=== PATIENT | male | born 1955 | race Two or more races ===

== ENCOUNTER 2020-04-09 11:04 | Outpatient (REF) | payer OTHER, SELFPAY ==
[2020-04-09 13:38] LABS: Alanine Aminotransferase 20 U/L (0-40); Albumin Level 4.2 g/dL (3.5-5.0); Alkaline Phosphatase 116 U/L (39-117); Aspartate Amino Transferase 17 U/L (5-37); Bilirubin Direct 0.2 mg/dL (0.0-0.5); Bilirubin Total 0.5 mg/dL (0.0-1.0); Cholesterol 144 mg/dL; HDL Cholesterol 34 mg/dL; LDL Cholesterol Calculated 80 mg/dl; Total Protein 7.2 g/dL (6.5-8.0); Triglycerides 151 mg/dL
== END 2020-04-09 11:05 | disposition home or self-care (01) ==
LOC: HO.LAB 11:04
PROVIDERS: PCP Family Medicine; Visit Provider Internal Medicine
DX: I25.10 Atherosclerotic heart disease of native coronary artery without angina pectoris (principal); F17.200 Nicotine dependence, unspecified, uncomplicated; I25.2 Old myocardial infarction; Z79.82 Long term (current) use of aspirin; Z79.899 Other long term (current) drug therapy; Z95.5 Presence of coronary angioplasty implant and graft
CPT/HCPCS: 36415; 80061; 80076; 93005; 99212

== ENCOUNTER → 2022-07-15 14:58 | Outpatient (REF) | payer MEDICARE, MEDICAID, SELFPAY ==
--- NOTE | 2022-07-15 15:06 | CA_ITS ---
Transthoracic Echocardiogram Patient (Last, First, Middle): Kalyan Glynn, Gender: Male Date of : 1955 Age: 67 Procedure Date: 07/15/2022 Procedure Type: Transthoracic Echocardiogram Location: OP Height: 170.18 cm Weight: 87.09 kg BSA: 1.99 m2 Heart Rate: 85 bpm Windows Server Support Technician: RAMESH Clemente MD: Lionel Maguire MD Enterprise Resource Analyst: Mil Barroso MD Symptoms: I25.10 - Atherosclerotic heart disease of [place] coronary artery without... Study Quality: Fair ECG Rhythm: Sinus Conclusions: - 1. Normal LV systolic function with LVEF of 60 65% 2. Normal cardiac valvular Doppler 3. Normal RV systolic pressure 4. No gross pericardial effusion Findings Left Ventricle Normal left ventricular size, thickness, and systolic function. The visually estimated ejection fraction is between 60-65%. Spectral Doppler is indicative of a normal filling pattern. Wall Motion Rest Echo Findings The basal inferior segment is hypokinetic. All other scored wall segments showed normal motion. Aortic Valve Normal aortic valve structure and function. There is no aortic valve stenosis. There is no aortic valve regurgitation. Mitral Valve Normal mitral valve structure and function. There is mild mitral annular calcification. There is trace mitral valve regurgitation. There is no mitral valve stenosis. Pulmonic Valve The pulmonic valve was not well visualized. Tricuspid Valve Likely normal tricuspid valve structure and function. There is trace tricuspid valve regurgitation. The right ventricular systolic pressure is normal. The right ventricular systolic pressure is 25 mmHg. Normal right atrial pressure. There is no evidence of pulmonary hypertension. Great Vessels All visible segments of the aorta are normal in size. The pulmonary artery was not well visualized. Venous The inferior vena cava is normal in size and collapses greater than 50% with inspiration. Pericardium/Pleural There is no evidence of pericardial effusion. Prior Study Comparison No significant change compared to prior study dated: 07/11/2018. Measurements 2D Linear Measurements IVSd: 1.15 0.6-0.9/0.6-1.0 cm LVIDd: 4.19 3.9-5.3/4.2-5.9 cm LVIDd Index: 2.11 2.4-3.2/2.2-3.1 cm/m2 LVIDs: 2.61 2.0-3.6 cm LVPWd: 0.69 0.7-1.1 cm LA Diam: 3.30 2.7-3.8/3.0-4.0 cm LAIDs Index: 1.66 1.5-2.3 cm/m2 LV Mass: 151.41 67-162/88-224 g LV Mass Index: 76.09 43-95/49-115 g/m2 LVOT Diam: 2.00 3.0+(-)1.3 cm 2D Systolic Function EF 4C: 63.50 >55% Mitral Valve MV Pk E: 0.99 MV PK A: 0.54 MV Decel Time: 175.00 E/A: 1.90 E'Lateral: 8.05 E'Medial: 6.64 E/E' Med: 15.00 E/E' Lat: 12.30 PHT: 51.00 MVA PHT: 4.31 Decel [place]: 5.69 Aortic Valve AoV Pk Deandre: 1.41 AoV Pk Grad: 8.00 NELLY: 2.69 LVOT LVOT Pk Deandre: 1.13 LVOT Mn Deandre: 0.69 LVOT VTI: 0.24 LVOT Pk Grad: 5.00 LVOT Mn Grad: 3.00 LVOT Diam: 2.00 LVOT Area: 3.14 Diastolic Function MV Pk E: 0.99 MV Pk A: 0.54 E/A: 1.90 E'Medial: 6.64 E/E' Med: 15.00 E' Laterial: 8.05 E/E' Lat: 12.30 Right Ventricle TAPSE (mm): 23.50 TVS' Deandre: 14.40 Tricuspid Valve TR Pk Deandre: 2.32 TR Pk Grad: 22.00 RA Press: 3.00 RVSP: 25.00 Great Vessels Aorta Sinus of Valsalva: 2.70 2.0-3.5 cm Ao Asc: 3.00 2.1-3.4 cm Pulmonary Valve PV Pk Deandre: 0.94 Peak PV Grad: 4.00 Updated in Other Vendor System with Status of Final Mil Barroso MD electronically signed on 07/16/2022 10:38:08 AM with status of Final
== END ==
LOC: HO.CARD 14:58
PROVIDERS: PCP Family Medicine; Visit Provider Internal Medicine
DX: I25.10 Atherosclerotic heart disease of native coronary artery without angina pectoris (principal); R07.9 Chest pain, unspecified
CPT/HCPCS: 93306

== ENCOUNTER → 2022-07-25 08:31 | Outpatient (REF) | payer MEDICARE, MEDICAID, SELFPAY ==
--- NOTE | ~2022-07-25 | NM_ITS ---
Exercise Myocardial perfusion study Indication: Precordial chest pain to evaluate for myocardial ischemia Technique: The patient was brought in for an exercise perfusion study on 07/25/2022. Patient performed exercise as per Jeff protocol and was injected 30 mCi of sestamibi was given intravenously one target HR was achieved. Images were obtained using the SPECT gamma camera interlaced with the gating device. Images were obtained in supine position. Resting perfusion study was performed on 07/26/2022. Patient was administered 30 mCi of sestamibi intravenously at rest. Images were then obtained in supine position. Images obtained with and without CT attenuation. Total DLP 88 mGy-cm. Images were processed with the software and compared side to side in short axis, horizontal long axis and vertical long axis views. Findings: The stress perfusion study showed non attenuated images show minimal thinning of the basal septum of the LV myocardium. Remainder of the LV myocardium is normally perfused. Attenuation corrected images show normal uptake of radiotracer in all segments of LV myocardium. The gated study shows normal LV systolic function with calculated LVEF of 73%. LV cavity is normal in size. The gated study shows normal systolic wall thickening and contraction of all segments. There is no transient ischemic dilation. Resting study shows attenuated images show normal uptake of radiotracer in all segments. Gating at rest reveals normal systolic wall motion with ejection fraction at 74%. The findings are consistent with normal myocardial perfusion. NM/NM cardiolite stress test Impression: 1. Normal myocardial perfusion 2. Gated LVEF is 73% 3. Transient ischemic dilatation not present Stress EKG is negative for ischemia
--- NOTE | 2022-07-25 08:33 | CA_ITS ---
Acquisition Time: 2022-07-25 08:50:10 Total Exercise Time: 00:08:00 Test Indications: CP Medications: ASA ATORVASTATIN METOPROLOL Protocol: MINNIE Max HR: 137 BPM 88% of Pred: 155 BPM Max BP: 128/064 mmHG Max Work Load: 10.1 METS Exercise stress test with exercise 8 min of Minnie protocol, achieving 88% MPHR, with fatigue and need to stop, with mild sob, no chest discomfort, without arrythmia, with normotensive response to exercise, without EKG changes meeting critieria for ischemia. Nuclear images pending. Test reviewed with Dr Barroso Referred By: Lionel Maguire Overread By: MIAH ROBBINS
== END ==
LOC: HO.CARD 08:31
PROVIDERS: PCP Family Medicine; Visit Provider Internal Medicine
DX: R07.2 Precordial pain (principal); I25.10 Atherosclerotic heart disease of native coronary artery without angina pectoris
CPT/HCPCS: 78452; 93017; A9500

== ENCOUNTER 2022-09-07 10:49 | Outpatient (AMB) | payer MEDICARE, MEDICAID, SELFPAY ==
--- NOTE | 2022-09-07 11:12 | A.OFFVIS_ITS ---
Intake Vital Signs 09/07/22 11:14 Height 5 ft 7 in Weight 190 lb 7.67 oz BMI 29.8 BP 102/64 Blood Pressure Location Lt brachial Position Sitting Pulse 62 Intake Visit Reasons: R/S 1 year follow up Intake Note: 1 year follow up w/ EKG Coding Specialist Required: No Accompanied by: Self / Same As Patient Allergies Penicillins Allergy (Unknown, Verified 09/07/22 11:15) RASH Medication List - Last Reconciled 09/07/22 by Lionel Maguire MD aspirin 81 mg PO DAILY 90 days atorvastatin 80 mg PO DAILY 90 days ketoconazole 2% 1 appl topical BID lidocaine HCl 4% (Aspercreme (lidocaine HCl)) 1 appl topical TID PRN 30 days metoprolol succinate ER 25 mg PO DAILY 90 days nitroglycerin 0 mg sublingual HPI HPI Comments History of Present Illness Details Kalyan returns for follow-up regarding coronary artery disease. He has a history of NSTEMI in 2016. At that time, we had seen him in [facility]. He underwent catheterization and stenting of the distal circumflex with drug- eluting stenting. There was no significant disease elsewhere. Couple of months ago, he was seen in [facility] emergency room regarding chest pain. He ruled out and was discharged home. Then had an echocardiogram as tested. Overall, he is doing fine. No new concerns. Unfortunately, continues to smoke. [facility], [facility] Medical History (Updated 06/15/22 @ 13:10 by Lionel Maguire MD) Atherosclerotic cardiovascular disease Surgical History History of heart artery stent (~2002) Stented coronary artery Family History Father No problems noted. Mother No problems noted. Review of Systems Const Denies weakness ENT Denies dizziness Card Denies chest pain, Denies chest pain with activity, Denies syncope, Denies rapid heart rate, Denies pedal edema, Denies edema, Denies leg edema, Denies lightheadedness, Denies palpitations, Denies dyspnea, Denies dyspnea on exertion and Denies orthopnea Resp Denies cough, Denies dyspnea and Denies dyspnea on exertion GI Denies hematochezia and Denies change in stool character Musc Denies abnormal gait, Denies muscle cramps, Denies muscle weakness, Denies numbness, Denies radiating pain into limb and Denies tingling Neuro Denies abnormal gait, Denies dizziness, Denies syncope, Denies numbness, Denies tingling and Denies weakness Endo Denies palpitations Physical Exam Vital Signs: Last Vital Signs Pulse 62 09/07/22 11:14 BP 102/64 09/07/22 11:14 BMI result Body Mass Index 29.8 Const General: comfortable and no acute distress Orientation/consciousness: patient oriented x3 HEENT Other: Unremarkable Head: Yes normal to inspection Neck Neck: Yes normal visual inspection Chest Chest palpation & inspection: normal inspection of the chest Resp Auscultation: clear to auscultation bilaterally Cardio Palpation: normal PMI Heart sounds: S1 normal heart sound present, S2 normal heart sound present, no gallops, no murmurs and no rubs GI Palpation (GI): Soft to palpation Back/Spine/Pelvis Other: unremarkable Skin General skin exam: no rashes or lesions noted Neuro General: patient oriented x3 Extrem General: Yes normal to inspection Psych Mental Status: mental status grossly normal Office Procedures EKG Details: EKG with sinus rhythm at 62/Min; no significant ST-T changes and otherwise unremarkable. [place] [id number], Complete Assessment & Plan Assessment & Plan (1) Atherosclerotic cardiovascular disease: Code(s): I25.10 - Atherosclerotic heart disease of [place] coronary artery without angina pectoris (2) Stented coronary artery: Code(s): Z95.5 - Presence of coronary angioplasty implant and graft (3) Smoking: Code(s): F17.200 - Nicotine dependence, unspecified, uncomplicated Plan In the echocardiogram, LVEF 60-60%. basal inferior hypokinesis likely related to his prior coronary event. Otherwise unremarkable. In the stress test, he was able to exercise for 10.1 Mets with no chest discomfort. No EKG evidence of ischemia. Perfusion imaging also unremarkable. Per [facility] labs, N terminal proBNP was 83. High sensitivity troponins were 6 and 7, well within norm Overall, stable CAD. Continue aspirin, beta-blockers statin. Request for lipids to be checked. Otherwise recommend that he stop smoking. Follow-up in 1 year. Total time spent including review of [facility] records, counseling, documentation, coordination of care- 33 minutes. Orders: Orders Lipid Panel Today E78.5 - Hyperlipidemia, unspecified Liver Panel Today I25.10 - Atherosclerotic heart disease of [place] coronary artery without angina pectoris Coding Level of Care Code Est Pt Level 4 (28415) Diagnoses Atherosclerotic cardiovascular disease I25.10 Stented coronary artery Z95.5 Smoking F17.200 CPT Codes EKG - CPT: 64451-[id number], Complete ([id number])
[2022-09-07 11:14] VITALS: BP 102/64; PULSE 62; BMI 29.8
== END 2022-09-07 11:38 | disposition home or self-care (01) ==
PROVIDERS: Visit Provider Internal Medicine
DX: I25.10 Atherosclerotic heart disease of native coronary artery without angina pectoris (principal); Z95.5 Presence of coronary angioplasty implant and graft; F17.200 Nicotine dependence, unspecified, uncomplicated
CPT/HCPCS: 93010; 99214

== ENCOUNTER → 2022-09-07 10:49 | Outpatient (BNVA) | payer MEDICARE, MEDICAID, SELFPAY | PROVIDERS: Visit Provider Internal Medicine | DX: I25.10 Atherosclerotic heart disease of native coronary artery without angina pectoris (principal); F17.200 Nicotine dependence, unspecified, uncomplicated; Z95.5 Presence of coronary angioplasty implant and graft | CPT/HCPCS: 93005; 99212 ==